=== PATIENT | female | born 1980 | race Caucasian/White ===

== ENCOUNTER 2019-03-21 10:16 | Emergency (ER) | payer SELFPAY ==
[~2019-03-21] VITALS: Ht 157.5 cm; Wt 50.9 kg
[~2019-03-21 10:16] MED LIST: ALPR1TAB2 PO; HYDR-3165 PO; IBUP800T19 PO; ONDA4TAB10 PO
[2019-03-21 10:32] VITALS: BP 105/63
--- NOTE | 2019-03-21 11:13 | PHYS DOC ---
Past History Past Medical History: Anxiety Past Surgical History: , Other Alcohol Use: Occasionally Drug Use: None Adult General Chief Complaint Chief Complaint: FLU SYMPTOM HPI HPI 38 showed female presents with 4 day history of cough, intermittent fever, body aches. She is feeling worse today and decided to come emergency room. Her last fever was 101. She does not have a fever on arrival. Patient has had one of her children diagnosed with strep. She also has a sore throat and wants to make sure she does not have strep pharyngitis. She is also concerned about influenza bec ause it is going around. Review of Systems Review of Systems Constitutional: Fever[] Eyes: Denies change in visual acuity, redness, or eye pain [] HENT: sore throat [] Respiratory: Cough without shortness of breath [] Cardiovascular: No additional information not addressed in HPI [] GI: Denies abdominal pain, nausea, vomiting, bloody stools or diarrhea [] : Denies dysuria or hematuria [] Musculoskeletal: Denies back pain or joint pain [] Integument: Denies rash or skin lesions [] Neurologic: Denies headache, focal weakness or sensory changes [] Endocrine: Denies polyuria or polydipsia [] All other systems were reviewed and found to be within normal limits, except as documented in this note. Allergies Allergies Allergies Coded Allergies Type Severity Reaction Last Updated Verified Penicillins Allergy Unknown 09/16/15 Yes Physical Exam Physical Exam Constitutional: Well developed, well nourished, no acute distress, non-toxic appearance. [] HENT: Normocephalic, atraumatic, bilateral external ears normal, oropharynx moist, no tonsillar exudates, nose congested. [] Eyes: PERRLA, EOMI, conjunctiva normal, no discharge. [] Neck: Normal range of motion, no tenderness, supple, no stridor. [] Cardiovascular: Heart rate regular rhythm, no murmur [] Lungs & Thorax: Bilateral breath sounds clear to auscultation [] Abdomen: Bowel sounds normal, soft, no tenderness, no masses, no pulsatile mas ses. [] Skin: Warm, dry, no erythema, no rash. [] Back: No tenderness, no CVA tenderness. [] Extremities: No tenderness, no cyanosis, no clubbing, ROM intact, no edema. [] Neurologic: Alert and oriented X 3, normal motor function, normal sensory function, no focal deficits noted. [] Psychologic: Affect normal, judgement normal, mood normal. [] Current Patient Data Vital Signs Vital Signs Date Time Temp Pulse Resp B/P (MAP) Pulse Ox O2 Delivery O2 Flow Rate FiO2 03/21/19 10:32 98.6 89 18 105/63 (77) 98 Lab Results Laboratory Tests Test 03/21/19 10:30 Group A Streptococcus Rapid Negative (NEGATIVE) EKG EKG [] Radiology/Procedures Radiology/Procedures [] Course & Med Decision Making Course & Med Decision Making Pertinent Labs and Imaging studies reviewed. (See chart for details) Patient's rapid strep is negative. Her influenza swab was not very good specimen. The patient did not tolerate it well. Based on her symptoms alone, I believe this could be influenza. She is passed the window for Tamiflu. I'll advise supportive care. She is stable for discharge at this time. The patient's influenza test did turnaround planner to be positive for influenza B. I have made the patient aware prior to discharge. [] Dragon Disclaimer Dragon Disclaimer This electronic medical record was generated, in whole or in part, using a voice recognition dictation system. Departure Departure: Impression: Primary Impression: Influenza B Disposition: 01 HOME, SELF-CARE Condition: STABLE Referrals: ZACHERY HDEZ MD (PCP) Patient Instructions: Influenza, Adult, [id number] LOIS RYE DO Mar 21, 2019 11:13
[2019-03-21 11:22] LABS: INFLUENZA A PATIENT NEGATIVE (NEGATIVE); INFLUENZA B PATIENT POSITIVE (NEGATIVE)
== END 2019-03-21 11:21 | disposition home or self-care (01) ==
LOC: ER 10:16
DX: J10.1 Influenza due to other identified influenza virus with other respiratory manifestations (principal); F41.9 Anxiety disorder, unspecified; Z88.0 Allergy status to penicillin
CPT/HCPCS: 87070; 87804; 87880; 99284